=== PATIENT | female | born 1980 | race Hispanic/Latino ===

== ENCOUNTER 2017-07-26 21:58 | Emergency (ER) | payer MEDICAID, OTHER ==
[2017-07-26 22:11] VITALS: BP 127/82; TEMP 98; O2SAT 100
--- NOTE | 2017-07-26 22:25 | ED.PDOC ---
History of Present Illness - General Chief Complaint: Neuro Symptoms/Deficits Stated Complaint: left sided numbness, burning sensation Time Seen by Provider: 07/26/17 22:11 Source: patient Exam Limitations: no limitations - History of Present Illness Initial Comments: the patient is a 36-year-old female presenting to the emergency room secondary to a sensation of mild tingling to the leftfor his periorbital area starting approximately 10 hours ago. No vision changes. No hearing changes. There is no spasm of the facial musculature. This sensation of mild tingling and mild burning as well as mild numbness at same time. There is no rash in that distribution. No fevers and the patient. No real headache. No altered mental status. She has not had shingles. the patient also reports that she had a couple of days of very mild left breast discomfort. Mild tenderness. It has resolved a couple of days ago. No . No redness. No palpable masses. Severity: mild Improving Factors: nothing Worsening Factors: nothing Associated Symptoms: denies symptoms Allergies/Adverse Reactions: Allergies Penicillin G Allergy (Unknown, Verified 10/21/12 15:16) Home Medications: Ambulatory Orders Acetaminophen W/ Codeine [Tylenol W/ CODEINE #3] 1 ea PO Q6HR PRN #30 12/20/13 Ibuprofen [Motrin] 800 mg PO .Q8 PRN #40 tab 12/20/13 Review of Systems - Review of Systems Constitutional: States: no symptoms reported EENTM: States: no symptoms reported Respiratory: States: no symptoms reported Cardiology: States: no symptoms reported Gastrointestinal/Abdominal: States: no symptoms reported Genitourinary: States: no symptoms reported Musculoskeletal: States: no symptoms reported Skin: States: no symptoms reported Neurological: States: see HPI Endocrine: States: no symptoms reported All other Systems: No Change from Baseline Past Medical History (General) - Patient Medical History Hx Asthma: No Hx Cardiac Disorders: No Hx Congestive Heart Failure: No Hx Diabetes: No Hx Renal Disease: No Surgical History: other - Vaccination History Hx Tetanus, Diphtheria Vaccination: Yes - 3yrs ago Hx Influenza Vaccination: No Hx Pneumococcal Vaccination: No - Social History Hx Alcohol Use: No Hx Substance Use: No - Female History Patient is a Female of Child Bearing Age (10 -59 yrs old): Yes Hx Last Menstrual Period: 03/22/12 Patient : No Expected Date of Delivery:: 12/25/13 Family Medical History - Family History Mother Family History: Unknown Father Family History: Unknown Physical Exam - Physical Exam General Appearance: Alert, Comfortable, No apparent distress Eye Exam: bilateral normal Ears, Nose, Throat: hearing grossly normal, normal ENT inspection, normal pharynx Neck: full range of motion, supple Respiratory: no respiratory distress, no accessory muscle use Cardiovascular/Chest: normal peripheral pulses, no edema Peripheral Pulses: radial,left: 2+ Rectal Exam: deferred Extremity: normal range of motion, normal inspection, no pedal edema 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 She can continue Motrin for now. She does need to watch out for any rash development in that distribution which would indicate the possibility of shingles and a change in treatment necessity. She needs to keep herself well- hydrated. ER warnings were given for any worsening. She should follow-up with her primary care doctor around Sunday for reevaluation. if breast discomfort returns then she can also be further evaluated for that with her primary care doctor. 07/26/17 22:27 Departure - Departure Clinical Impression: Trigeminal neuralgia of left side of face Disposition: Discharge to Home or Self Care Condition: Fair Departure Forms: ED Discharge - Pt. Copy, Patient Portal Self Enrollment Instructions: DI for Trigeminal Neuralgia Diet: regular diet Activity: increase activity as tolerated Referrals: Stanley Frost MD [Primary Care Provider] - 1-2 Weeks Home Medications: Ambulatory Orders Acetaminophen W/ Codeine [Tylenol W/ CODEINE #3] 1 ea PO Q6HR PRN #30 12/20/13 Ibuprofen [Motrin] 800 mg PO .Q8 PRN #40 tab 12/20/13 Additional Instructions: the patient's a 36-year-old female presented to the emergency room with what is probably very early mild trigeminal neuralgia in the V1 distribution. She can continue Motrin for now. She does need to watch out for any rash development in that distribution which would indicate the possibility of shingles and a change in treatment necessity. She needs to keep herself well- hydrated. ER warnings were given for any worsening. She should follow-up with her primary care doctor around Sunday for reevaluation. if breast discomfort returns then she can also be further evaluated for that with her primary care doctor.
== END 2017-07-26 22:43 | disposition home or self-care (01) ==
LOC: ER 21:58
DX: G50.0 Trigeminal neuralgia (principal)

== ENCOUNTER → 2018-08-22 | Outpatient (CLI) | payer OTHER | LOC: YCFC.O 14:17 | PROVIDERS: ATTEND Nurse Practitioner | DX: R10.10 Upper abdominal pain, unspecified (principal) ==

== ENCOUNTER → 2018-08-26 | Outpatient (CLI) | payer OTHER ==
--- NOTE | 2018-08-27 10:01 | CT ---
EXAM DESCRIPTION: CT ABDOMEN AND PELVIS WITH CONTRAST CLINICAL HISTORY: UPPER ABDOMINAL PAIN COMPARISON: None Available. TECHNIQUE: CT of the abdomen and pelvis are performed during IV bolus administration of routine adult dose of nonionic iodinated IV contrast. No oral contrast was given. FINDINGS: In the lower chest, the lung bases are clear. Heart size is normal. CT abdomen No density liver is consistent with diffuse hepatic steatosis. Small cyst in the anterior right lobe measures 1 cm. Cystic lesion near the tail of the pancreas measures 3 x 2.3 cm. Differential considerations would include lymphangioma, old pancreatic pseudocyst or exophytic cystic neoplasm. The lesion appears simple and thin-walled with a density of 1.5 Hounsfield units. Most likely this is benign. Sonography may be helpful to see if this is visible in which case sono follow-up should be adequate. Small cyst of the right kidney measures 1.2 cm. Otherwise the liver, spleen, gallbladder, adrenal glands, stomach and kidneys are unremarkable in appearance. No inflammation around the pancreas. No renal stones or hydronephrosis. No bowel dilatation to suggest obstruction. No free air or free fluid. CT pelvis Appendix appears normal. No inflammation around the cecum or terminal ileum or sigmoid colon. Bladder and distal ureters are negative for stones. Normal enhancement of pelvic vessels. No inguinal or lower pelvic adenopathy. Right ovary is enlarged measuring 4.7 cm with a cyst 4.4 cm in size. This could be further evaluated with sonography and followed to ensure resolution. Left ovary appears normal. Uterus is anteverted with a normal appearance. No cervical enlargement. Bone window images are negative for fracture or lytic lesion. Coronal and sagittal reformatted images confirm the findings. On the coronal images, the cystic lesion posteroinferior to the tail of pancreas appears separate from the pancreas which would argue against pseudocyst or pancreatic cystic neoplasm. Small lymphangioma is therefore thought more likely and this could be followed with CT or sono imaging at 3-6 month intervals until stability is demonstrated. Fatty liver measures 20.8 cm in length, mildly enlarged. Spleen is normal in size. Hypodensities in the lower calyces of both kidneys consistent with nonobstructing renal stones. Largest on the right measures 7 mm. Largest on the left measures 5 mm. IMPRESSION: Cystic lesion near the tail the pancreas 3 cm. Follow-up is recommended to ensure stability. Bilateral nonobstructing renal calculi. Mildly enlarged liver with diffuse hepatic steatosis. Right ovarian cyst 4.4 cm. See above. This exam was performed according to our departmental dose-optimization program, which includes automated exposure control, adjustment of the mA and/or kV according to patient size and/or use of iterative reconstruction technique. Total DLP equals 912.67 mGycm. Electronically signed by: Aron Armas MD 08/27/2018 9:59 AM CDT
== END ==
LOC: CT 14:33
PROVIDERS: ATTEND Nurse Practitioner
DX: K86.89 Other specified diseases of pancreas (principal); N20.0 Calculus of kidney; K76.0 Fatty (change of) liver, not elsewhere classified; N83.201 Unspecified ovarian cyst, right side